=== PATIENT | female | born 2005 | race Caucasian/White ===

== ENCOUNTER 2025-08-09 12:32 | Emergency (ER) | payer SELFPAY ==
[2025-08-09 12:35] VITALS: BP 120/88
[2025-08-09 13:51] LABS: ALT (SGPT) 56 U/L (0-35); AST (SGOT) 35 U/L (14-36); Albumin 4.7 g/dl (3.5-5.0); Alkaline Phosphatase 96 U/L (38-126); Blood Urea Nitrogen 9 mg/dl (7-17); Calcium 9.4 mg/dl (8.4-10.2); Carbon Dioxide 25 mmol/L (22-30); Chloride 104 mmol/L (98-107); Glucose 97 mg/dl (70-99); Potassium 4.3 mmol/L (3.5-5.1); Sodium 137 mmol/L (135-145); Total Protein 7.7 g/dl (6.3-8.2); eGFR > 60.00
[2025-08-09 13:57] LABS: Troponin I < 0.012 ng/ml
--- NOTE | 2025-08-09 16:01 | ED.GENMED ---
History of Present Illness
General
Chief Complaint: Dizziness
Source: patient
Exam Limitations: none
Time Seen by Provider: 08/09/25 15:00
Nursing documentation reviewed up to this point in time: agreed with
History of Present Illness
History of Present Illness:
Patient is a 20-year-old female who presents to the emergency department via EMS for evaluation following near syncopal event while at work. 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
stood up and became very lightheaded. She is having a hard time describing exactly how she is feeling although states that she felt as if she may pass out. Her coworkers did lay her on the ground and took her vital signs�apparently her heart rate
was quite elevated in the 130s. She never lost consciousness.
They called 911 for transportation to the emergency department.
By my assessment patient is asymptomatic. She denies any preceding chest pain, shortness of breath, dizziness, headache. She did not have any visual changes.
She states that she has 'undiagnosed POTS' and has experienced similar episodes in the past.
Review of Systems
Review of Systems
Allergies reviewed?: Yes
All Other Systems: ROS reviewed and negative except as documented in HPI and ROS
Phy Exam
Physical Exam
Physical Exam:
Vitals: Patient's vital signs are stable. Afebrile
General: Patient is well appearing, no acute distress. Nontoxic.
Skin: Warm and dry, no rashes or lesions
Head: Normocephalic, atraumatic
Eyes: Sclera nonicteric. EOMs intact. No nystagmus.
Throat: Protecting airway
Neck: Normal ROM, no cervical spine tenderness, no meningismus
Cardiac: Regular rate and rhythm, no murmurs. 2+ palpable radial pulses bilaterally
Pulm: Normal respiratory effort, no wheezes, rales, rhonchi heard on exam
Abdomen: No abdominal tenderness.
Extremities: No evidence of cyanosis or edema. 2+ DP pulses bilaterally
Neuro: AAOx3. Grossly intact.
Psychiatric: Normal affect.
Course
Orders/Labs/Results
Orders:
Orders
08/09/25 12:39
Electrocardiogram (*1) Urgent
Reason for Study: Vertigo / Dizzy
EKG- Treatment ONCE
08/09/25 13:01
Comprehensive Metabolic Panel Urgent
HCG, Serum Qualitative Screen Urgent
Comment: ADD ON
Troponin I Urgent
08/09/25 15:15
Orthostatic VS- Treatment ONCE
0.9% Sodium Chloride 1000 ml [Nss] 1,000 ml IV BOLUS
08/09/25 15:16
Add On- LAB Urgent
Tests Added?: serum hcg, qualitative
Abnormal Lab Results
08/09/25
13:01
Creatinine 0.5 L mg/dL
(0.6-1.0)
ALT 56 H U/L
(0-35)
08/09/25 13:01
08/09/25 13:01
Vital Signs
Initial and Last Documented VS:
Initial Vital Signs
Temp Pulse Resp BP Pulse Ox
98.1 F 94 18 120/88 99
08/09/25 12:35 08/09/25 12:35 08/09/25 12:35 08/09/25 12:35 08/09/25 12:35
Last Documented Vital Signs
Temp Pulse Resp BP Pulse Ox
98.1 F 94 18 120/88 99
08/09/25 12:35 08/09/25 12:35 08/09/25 12:35 08/09/25 12:35 08/09/25 16:01
MDM/Problems Addressed
Differential Diagnosis Includes:
Not limited to: Orthostatic hypotension, vasovagal near syncope, acute dehydration, cardiac arrhythmia, POTS, etc.
MDM/Problems Addressed:
20-year-old female presents after a near-syncopal episode at work, which occurred upon transitioning from sitting to standing. She has a history of similar symptoms and reports a possible diagnosis of POTS that has not been formally confirmed. At
the time of ED evaluation, she is asymptomatic.
Initial EKG shows normal sinus rhythm with no signs of arrhythmia or acute ischemia. Chemistry panel is unremarkable.
Recommended additional workup including CBC, serum hCG, orthostatic vital signs, IV fluid hydration, and continued cardiac monitoring. However, the patient repeatedly declined further evaluation, stating she feels completely better and is requesting
discharge.
While her symptoms are most consistent with orthostatic hypotension or possible POTS, we are unable to rule out other emergent etiologies without further diagnostic testing. This was discussed in detail with the patient, including risks of
incomplete evaluation. She demonstrates understanding and continues to prefer discharge.
She has agreed to follow up with her primary care physician and cardiology for further evaluation. Strict return precautions reviewed, including worsening symptoms, chest pain, palpitations, or recurrence of near-syncope/syncope. Patient left in
stable condition and is agreeable with the plan.
Chronic conditions affecting care:
N/A
Acute Exacerbation and/or Progression of Chronic Illness:
N/A
*Pulse Oximetry
SaO2: 99
Patient hypoxic: no
*EKG
Interpreted by ED Provider?: Yes
EKG Intrepretation Date: 08/09/25
Interpretation: normal
Comparison EKG: no comparison EKG present
Heart Rate: 87
Rate: normal
Rhythm: sinus
Bearden: normal axis
Interval: normal QT interval
QRS Pattern: normal QRS
Ischemia: no ischemia
*Savings Counselor Interpretation
Rate: Savings Counselor- N/A
*Critical Care Note
Total Time (30-74mins, 75-104mins- exclusive of procedures): Not Applicable
ED Attending Note
-
Portions of this chart may have been created with voice recognition software.� Occasional wrong word or��sound alike� substitutions may have occurred due to the inherent limitations of voice recognition software.
Discharge Plan
Departure
Patient Disposition: Home (Routine Discharge)
Date of Disposition: 08/09/25
Time of Disposition: 15:29
Patient with high blood pressure during this ER visit?: No
Condition: Good
Discharge Problem:
Postural dizziness with near syncope
Instructions: Near Fainting (DC)
Referrals:
[facility] [Provider Group] - Next open appointment
[facility] [Outside] - Next open appointment
NONE,* [Family Provider, Internal Medicine]
Ministerio Roberto, DO [Active, Cardiology] - Next open appointment
Activity Restrictions/Additional Instructions:
RETURN TO THE EMERGENCY DEPARTMENT WITH ANY FEVERS, DIZZINESS/LIGHTHEADEDNESS, CHEST PAIN OR SHORTNESS OF BREATH, EPISODES OF FAINTING, ELEVATED HEART RATE, WORSENING IN CURRENT SYMPTOMS, OR ANY OTHER CONCERNS
- As discussed�you declined the recommended lab work and IV fluids.
- Your EKG showed a heart rate of 87 without any evidence of arrhythmia at that moment. Your ALT (liver function test) was mildly elevated in the emergency department. Please ensure this is repeated with your primary care.
- Is important to stay well-hydrated. Please go slowly from sitting to standing.
Follow-up with primary care and cardiology for further evaluation/management. Return if you decide you would like further testing.
Interventions
Interventions:
*Risk Screen - Suicide Last Done: 08/09/25 12:38
*General Assessment Last Done: 08/09/25 15:45
*Neglect/Abuse Screening Last Done: 08/09/25 12:38
*ED- Fall Risk Assessment Last Done: 08/09/25 15:45
*ED COVID-19 Vaccine History Last Done: 08/09/25 15:45
*ED Influenza Vaccine History Last Done: 08/09/25 15:45
*Nursing Disposition Last Done: 08/09/25 15:45
ED- Neurological Assessment Last Done: 08/09/25 15:44
ED- Cardiac Assessment Last Done: 08/09/25 15:45
Discharge Date and Time
Discharge Date/Time: 08/09/25 15:47
Print Language: VIET[place]ESE
[2025-08-09 16:21] LABS: HCG, Serum Qualitative Screen Negative
== END 2025-08-09 15:47 | disposition home or self-care (01) ==
LOC: EMR 12:32
PROVIDERS: Student in an Organized Health Care Education/Training Program; EMERGENCY PHYSICIAN Emergency Medicine
DX: R42 Dizziness and giddiness (principal); R55 Syncope and collapse
CPT/HCPCS: 99284; 80053; 84484; 84703; 93005